=== PATIENT | male | born 1990 | race Caucasian/White ===

== ENCOUNTER 2021-02-12 00:12 | Emergency (ER) | payer OTHER, SELFPAY ==
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
[2021-02-12 00:41] VITALS: BP 108/62; PULSE 83; RESP 18; TEMP 37.4; O2SAT 98; BMI 30.4
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
[2021-02-12] MEDS: Diphth,Pertus(ACell),Tet Adult 0.5 ML SYRINGE IM (03:35)
[2021-02-12] MEDS: Bacitracin Oint 14 GM TUBE 1 APPL TOPICAL (03:37)
== END 2021-02-12 03:58 | disposition home or self-care (01) ==
PROVIDERS: Emergency Provider Emergency Medicine Emergency Medical Services
DX: S62.355A Nondisplaced fracture of shaft of fourth metacarpal bone, left hand, initial encounter for closed fracture (principal); S00.81XA Abrasion of other part of head, initial encounter; S60.512A Abrasion of left hand, initial encounter; V43.52XA Car driver injured in collision with other type car in traffic accident, initial encounter; W22.11XA Striking against or struck by driver side automobile airbag, initial encounter; Y93.89 Activity, other specified; Y92.414 Local residential or business street as the place of occurrence of the external cause; Y99.9 Unspecified external cause status
CPT/HCPCS: 29125; 73130; 90471; 90715; 99284